=== PATIENT | female | born 1935 | race Caucasian/White ===

== ENCOUNTER 2021-03-05 10:39 | Emergency (ER) | payer MEDICARE | END 2021-03-05 11:46 | disposition home or self-care (01) | LOC: MADERS 10:39 | DX: N81.9 Female genital prolapse, unspecified (principal); I12.9 Hypertensive chronic kidney disease with stage 1 through stage 4 chronic kidney disease, or unspecified chronic kidney disease; N18.30 Chronic kidney disease, stage 3 unspecified; E78.00 Pure hypercholesterolemia, unspecified; I25.10 Atherosclerotic heart disease of native coronary artery without angina pectoris; Z79.899 Other long term (current) drug therapy | CPT/HCPCS: 99283 ==

== ENCOUNTER 2021-09-23 14:01 | Inpatient (IN) | payer MEDICARE ==
[2021-09-23] MEDS ORDERED: Ondansetron ODT 4 MG TAB PO PRN (19:16)
[2021-09-23] MEDS ORDERED: busPIRone HCl 5 MG TAB PO PRN (19:37)
[2021-09-23] MEDS: Cephalexin 250 MG CAP PO SCH (20:14)
[2021-09-23] MEDS: Acetaminophen/Codeine 30-300mg Tablet PO PRN (20:15)
[2021-09-23] MEDS: Gabapentin 100 MG CAP PO SCH (20:16)
[2021-09-23] MEDS: traZODone HCl 50 MG TAB PO PRN (20:22)
[2021-09-23] MEDS: Acetaminophen 325 MG TAB PO SCH (20:22)
[2021-09-24] MEDS: Acetaminophen 325 MG TAB PO SCH ×4 (05:24→21:56)
[2021-09-24] MEDS: Senokot S 8.6-50 MG TAB PO SCH ×3 (05:24→21:57)
[2021-09-24] MEDS: Levothyroxine Sodium 88 MCG TAB PO SCH (05:54)
[2021-09-24] MEDS: Acetaminophen/Codeine 30-300mg Tablet PO PRN ×3 (08:23→22:24)
[2021-09-24] MEDS: Cephalexin 250 MG CAP PO SCH ×3 (08:52→21:57)
[2021-09-24] MEDS: Rivaroxaban 15 MG TAB PO SCH (08:52)
[2021-09-24] MEDS: Loratadine 10 MG TAB PO SCH (08:52)
[2021-09-24] MEDS: Cholecalciferol (Vitamin D3) 5,000 UNITS CAPSULE PO SCH (08:52)
[2021-09-24] MEDS: Montelukast Sodium 10 mg Tablet PO SCH (08:52)
[2021-09-24] MEDS: Atorvastatin Calcium 10 MG TAB PO SCH (08:52)
[2021-09-24] MEDS: Gabapentin 100 MG CAP PO SCH ×3 (08:53→21:58)
[2021-09-24] MEDS ORDERED: Famotidine 20 MG TAB PO SCH (21:00)
[2021-09-24] MEDS: Famotidine 20 MG TAB PO SCH (21:58)
[2021-09-24] MEDS: Mometasone Furoate 60 PUFF 220MCG INH SCH (22:28)
[2021-09-25] MEDS: Acetaminophen 325 MG TAB PO SCH ×4 (03:33→19:58)
[2021-09-25] MEDS: Levothyroxine Sodium 88 MCG TAB PO SCH (06:14)
[2021-09-25] MEDS: Acetaminophen/Codeine 30-300mg Tablet PO PRN ×3 (08:32→22:58)
[2021-09-25] MEDS: Gabapentin 100 MG CAP PO SCH ×3 (08:33→20:00)
[2021-09-25] MEDS: Senokot S 8.6-50 MG TAB PO SCH ×2 (08:34→20:01)
[2021-09-25] MEDS: Cephalexin 250 MG CAP PO SCH ×3 (08:35→20:00)
[2021-09-25] MEDS: Rivaroxaban 15 MG TAB PO SCH (08:36)
[2021-09-25] MEDS: Loratadine 10 MG TAB PO SCH (08:36)
[2021-09-25] MEDS: Atorvastatin Calcium 10 MG TAB PO SCH (08:36)
[2021-09-25] MEDS: Cholecalciferol (Vitamin D3) 5,000 UNITS CAPSULE PO SCH (08:36)
[2021-09-25] MEDS: Montelukast Sodium 10 mg Tablet PO SCH (08:36)
[2021-09-25] MEDS: Famotidine 20 MG TAB PO SCH (20:01)
[2021-09-25] MEDS: Mometasone Furoate 60 PUFF 220MCG INH SCH (21:14)
[2021-09-26] MEDS: Acetaminophen 325 MG TAB PO SCH ×4 (02:17→17:38)
[2021-09-26 05:07] LABS: Hemoglobin 11.4 g/dL (12.0-16.0); Platelet Count 250 thou/uL (130-400)
[2021-09-26] MEDS: Levothyroxine Sodium 88 MCG TAB PO SCH (05:15)
[2021-09-26] MEDS: Cholecalciferol (Vitamin D3) 5,000 UNITS CAPSULE PO SCH (09:01)
[2021-09-26] MEDS: Gabapentin 100 MG CAP PO SCH ×3 (09:01→20:53)
[2021-09-26] MEDS: Loratadine 10 MG TAB PO SCH (09:02)
[2021-09-26] MEDS: Atorvastatin Calcium 10 MG TAB PO SCH (09:02)
[2021-09-26] MEDS: Montelukast Sodium 10 mg Tablet PO SCH (09:02)
[2021-09-26] MEDS: Rivaroxaban 15 MG TAB PO SCH (09:02)
[2021-09-26] MEDS: Senokot S 8.6-50 MG TAB PO SCH ×2 (09:02→20:53)
[2021-09-26] MEDS: Cyclobenzaprine 10 MG TAB PO PRN (17:46)
[2021-09-26] MEDS: Famotidine 20 MG TAB PO SCH (20:52)
[2021-09-26] MEDS: traZODone HCl 50 MG TAB PO PRN (20:52)
[2021-09-26] MEDS: Mometasone Furoate 60 PUFF 220MCG INH SCH (20:54)
[2021-09-27] MEDS: Acetaminophen 325 MG TAB PO SCH ×4 (00:10→17:06)
[2021-09-27] MEDS: Levothyroxine Sodium 88 MCG TAB PO SCH (05:43)
[2021-09-27] MEDS: Acetaminophen/Codeine 30-300mg Tablet PO PRN (05:43)
[2021-09-27] MEDS: Cholecalciferol (Vitamin D3) 5,000 UNITS CAPSULE PO SCH (08:54)
[2021-09-27] MEDS: Gabapentin 100 MG CAP PO SCH ×4 (08:54→21:04)
[2021-09-27] MEDS: Montelukast Sodium 10 mg Tablet PO SCH (08:55)
[2021-09-27] MEDS: Senokot S 8.6-50 MG TAB PO SCH ×2 (08:55→21:05)
[2021-09-27] MEDS: Rivaroxaban 15 MG TAB PO SCH (08:55)
[2021-09-27] MEDS: Loratadine 10 MG TAB PO SCH (08:55)
[2021-09-27] MEDS: Atorvastatin Calcium 10 MG TAB PO SCH (08:55)
[2021-09-27] MEDS: Cyclobenzaprine 10 MG TAB PO PRN (09:03)
[2021-09-27] MEDS: Famotidine 20 MG TAB PO SCH (21:04)
[2021-09-27] MEDS: traZODone HCl 50 MG TAB PO PRN (21:05)
[2021-09-27] MEDS: Mometasone Furoate 60 PUFF 220MCG INH SCH (21:47)
[2021-09-28] MEDS: Acetaminophen 325 MG TAB PO SCH ×4 (00:25→17:06)
[2021-09-28] MEDS: Acetaminophen/Codeine 30-300mg Tablet PO PRN (01:01)
[2021-09-28] MEDS: Levothyroxine Sodium 88 MCG TAB PO SCH (05:40)
[2021-09-28] MEDS: Loratadine 10 MG TAB PO SCH (08:37)
[2021-09-28] MEDS: Montelukast Sodium 10 mg Tablet PO SCH (08:37)
[2021-09-28] MEDS: Senokot S 8.6-50 MG TAB PO SCH ×2 (08:37→22:06)
[2021-09-28] MEDS: Cholecalciferol (Vitamin D3) 5,000 UNITS CAPSULE PO SCH (08:37)
[2021-09-28] MEDS: Rivaroxaban 15 MG TAB PO SCH (08:37)
[2021-09-28] MEDS: Gabapentin 100 MG CAP PO SCH ×4 (08:37→22:36)
[2021-09-28] MEDS: Atorvastatin Calcium 10 MG TAB PO SCH (08:37)
[2021-09-28 12:21] LABS: Bilirubin Negative (Negative); Blood, Urine Negative (Negative); Glucose, Urine (Dipstick) Negative (Negative); Ketone, Urine Negative (Negative); Leukocyte Negative (Negative); Nitrite Negative (Negative); Protein, Urine (Dipstick) Trace mg/dL (Neg-Trace); Specific Gravity, Urine 1.025 (1.005-1.030); pH, Urine 5.5 (5.0-9.0)
[2021-09-28 12:22] LABS: Clarity Hazy (Clear)
[2021-09-28 12:32] LABS: #Basophils 0.1 thou/uL (0.0-0.2); #Eosinphils 0.1 thou/uL (0.0-0.7); #Monocytes 0.5 thou/uL (0.11-0.59); #Neutrophils 14.6 thou/uL (1.40-6.50); %Basophils 0.5 % (0.0-1.0); %Eosinophils 0.8 % (0.0-10.0); %Monocytes 3.1 % (0.0-10.0); %Neutrophils 89.6 % (42.0-75.0); Hemoglobin 11.3 g/dL (12.0-16.0); Mean Corpuscular HGB CONC 32.2 g/dL (32.0-36.0); Mean Corpuscular Hemoglobin 29.2 pg (27.0-31.0); Mean Corpuscular Volume 90.9 fL (78.0-98.0); Mean Platelet Volume 7.7 fL (7.4-10.4); Platelet Count 301 thou/uL (130-400); RBC Distribution Width 12.5 % (11.5-14.5); Red Blood Cell (RBC) Count 3.86 mill/uL (4.20-5.40); White Blood Cell (WBC) Count 16.3 thou/uL (4.8-10.8)
[2021-09-28 13:20] LABS: SARS-CoV-2 NAA Rapid Test Not Detected (NotDetected)
[2021-09-28] MEDS: Famotidine 20 MG TAB PO SCH ×2 (22:04→22:45)
[2021-09-28] MEDS: Mometasone Furoate 60 PUFF 220MCG INH SCH ×2 (22:08→22:45)
[2021-09-29] MEDS: Acetaminophen 325 MG TAB PO SCH ×4 (02:27→17:17)
[2021-09-29] MEDS: Levothyroxine Sodium 88 MCG TAB PO SCH (06:18)
[2021-09-29] MEDS: Loratadine 10 MG TAB PO SCH (08:52)
[2021-09-29] MEDS: Cholecalciferol (Vitamin D3) 5,000 UNITS CAPSULE PO SCH (08:52)
[2021-09-29] MEDS: Senokot S 8.6-50 MG TAB PO SCH ×2 (08:52→20:54)
[2021-09-29] MEDS: Gabapentin 100 MG CAP PO SCH ×3 (08:53→20:54)
[2021-09-29] MEDS: Atorvastatin Calcium 10 MG TAB PO SCH (08:53)
[2021-09-29] MEDS: Rivaroxaban 15 MG TAB PO SCH (08:54)
[2021-09-29] MEDS: Montelukast Sodium 10 mg Tablet PO SCH (08:54)
[2021-09-29] MEDS: Acetaminophen/Codeine 30-300mg Tablet PO PRN ×2 (11:31→17:18)
[2021-09-29 13:01] LABS: Chlamydia by PCR Not Detected (NotDetected); GC by PCR Not Detected (NotDetected)
[2021-09-29] MEDS: Preparation H Ointment 57 gram tube TOP SCH (20:52)
[2021-09-29] MEDS: Famotidine 20 MG TAB PO SCH (20:53)
[2021-09-29] MEDS: traZODone HCl 50 MG TAB PO PRN (20:54)
[2021-09-29] MEDS: Mometasone Furoate 60 PUFF 220MCG INH SCH (20:55)
[2021-09-29] MEDS ORDERED: Docusate 100 MG CAP PO SCH (21:00)
[2021-09-30] MEDS: Acetaminophen 325 MG TAB PO SCH ×4 (00:14→17:07)
[2021-09-30] MEDS: Levothyroxine Sodium 88 MCG TAB PO SCH (05:28)
[2021-09-30] MEDS: Montelukast Sodium 10 mg Tablet PO SCH (08:00)
[2021-09-30] MEDS: Cholecalciferol (Vitamin D3) 5,000 UNITS CAPSULE PO SCH (08:00)
[2021-09-30] MEDS: Rivaroxaban 15 MG TAB PO SCH (08:00)
[2021-09-30] MEDS: Polyethylene Glycol 3350 17 GM Packet PO SCH (08:00)
[2021-09-30] MEDS: Atorvastatin Calcium 10 MG TAB PO SCH (08:00)
[2021-09-30] MEDS: Loratadine 10 MG TAB PO SCH (08:00)
[2021-09-30] MEDS: Gabapentin 100 MG CAP PO SCH ×3 (08:00→20:50)
[2021-09-30] MEDS: Senokot S 8.6-50 MG TAB PO SCH ×2 (08:00→20:50)
[2021-09-30] MEDS: Preparation H Ointment 57 gram tube TOP SCH ×2 (08:08→20:53)
[2021-09-30] MEDS: Famotidine 20 MG TAB PO SCH (20:49)
[2021-09-30] MEDS: Cyclobenzaprine 10 MG TAB PO PRN (20:50)
[2021-09-30] MEDS: Mometasone Furoate 60 PUFF 220MCG INH SCH (20:53)
[2021-10-01] MEDS: Acetaminophen 325 MG TAB PO SCH ×4 (00:45→17:13)
[2021-10-01] MEDS: Levothyroxine Sodium 88 MCG TAB PO SCH (06:07)
[2021-10-01] MEDS: Loratadine 10 MG TAB PO SCH (09:15)
[2021-10-01] MEDS: Gabapentin 100 MG CAP PO SCH ×3 (09:15→21:09)
[2021-10-01] MEDS: Senokot S 8.6-50 MG TAB PO SCH ×2 (09:15→21:09)
[2021-10-01] MEDS: Polyethylene Glycol 3350 17 GM Packet PO SCH (09:15)
[2021-10-01] MEDS: Rivaroxaban 15 MG TAB PO SCH (09:16)
[2021-10-01] MEDS: Cholecalciferol (Vitamin D3) 5,000 UNITS CAPSULE PO SCH (09:16)
[2021-10-01] MEDS: Preparation H Ointment 57 gram tube TOP SCH ×2 (09:16→21:11)
[2021-10-01] MEDS: Atorvastatin Calcium 10 MG TAB PO SCH (09:16)
[2021-10-01] MEDS: Montelukast Sodium 10 mg Tablet PO SCH (09:16)
[2021-10-01] MEDS: Acetaminophen/Codeine 30-300mg Tablet PO PRN (10:20)
[2021-10-01] MEDS: Famotidine 20 MG TAB PO SCH (21:08)
[2021-10-01] MEDS: traZODone HCl 50 MG TAB PO PRN (21:10)
[2021-10-01] MEDS: Mometasone Furoate 60 PUFF 220MCG INH SCH (21:14)
[2021-10-02] MEDS: Acetaminophen 325 MG TAB PO SCH ×4 (00:23→17:20)
[2021-10-02] MEDS: Levothyroxine Sodium 88 MCG TAB PO SCH (05:59)
[2021-10-02] MEDS: Senokot S 8.6-50 MG TAB PO SCH ×2 (09:48→20:14)
[2021-10-02] MEDS: Loratadine 10 MG TAB PO SCH (09:49)
[2021-10-02] MEDS: Gabapentin 100 MG CAP PO SCH ×3 (09:49→20:14)
[2021-10-02] MEDS: Rivaroxaban 15 MG TAB PO SCH (09:49)
[2021-10-02] MEDS: Polyethylene Glycol 3350 17 GM Packet PO SCH (09:49)
[2021-10-02] MEDS: Montelukast Sodium 10 mg Tablet PO SCH (09:49)
[2021-10-02] MEDS: Cholecalciferol (Vitamin D3) 5,000 UNITS CAPSULE PO SCH (09:49)
[2021-10-02] MEDS: Preparation H Ointment 57 gram tube TOP SCH ×2 (09:50→20:16)
[2021-10-02] MEDS: Atorvastatin Calcium 10 MG TAB PO SCH (09:50)
[2021-10-02] MEDS ORDERED: Acetaminophen/Codeine 30-300mg Tablet PO PRN (12:57)
[2021-10-02] MEDS: Famotidine 20 MG TAB PO SCH (20:14)
[2021-10-02] MEDS: Mometasone Furoate 60 PUFF 220MCG INH SCH (20:28)
[2021-10-03] MEDS: Acetaminophen 325 MG TAB PO SCH ×4 (02:14→18:33)
[2021-10-03] MEDS: Acetaminophen/Codeine 30-300mg Tablet PO PRN (03:34)
[2021-10-03] MEDS: Levothyroxine Sodium 88 MCG TAB PO SCH (06:24)
[2021-10-03] MEDS: Rivaroxaban 15 MG TAB PO SCH (08:20)
[2021-10-03] MEDS: Loratadine 10 MG TAB PO SCH (08:20)
[2021-10-03] MEDS: Gabapentin 100 MG CAP PO SCH ×3 (08:20→21:07)
[2021-10-03] MEDS: Senokot S 8.6-50 MG TAB PO SCH ×2 (08:21→21:08)
[2021-10-03] MEDS: Montelukast Sodium 10 mg Tablet PO SCH (08:21)
[2021-10-03] MEDS: Polyethylene Glycol 3350 17 GM Packet PO SCH (08:21)
[2021-10-03] MEDS: Cholecalciferol (Vitamin D3) 5,000 UNITS CAPSULE PO SCH (08:21)
[2021-10-03] MEDS: Atorvastatin Calcium 10 MG TAB PO SCH (08:21)
[2021-10-03] MEDS: Preparation H Ointment 57 gram tube TOP SCH ×2 (08:22→21:06)
[2021-10-03] MEDS: Famotidine 20 MG TAB PO SCH (21:06)
[2021-10-03] MEDS: traZODone HCl 50 MG TAB PO PRN (21:08)
[2021-10-03] MEDS: Mometasone Furoate 60 PUFF 220MCG INH SCH (21:18)
[2021-10-04] MEDS: Acetaminophen 325 MG TAB PO SCH ×5 (00:56→23:59)
[2021-10-04] MEDS: Levothyroxine Sodium 88 MCG TAB PO SCH (06:14)
[2021-10-04] MEDS: Acetaminophen/Codeine 30-300mg Tablet PO PRN (08:19)
[2021-10-04] MEDS: Rivaroxaban 15 MG TAB PO SCH (08:21)
[2021-10-04] MEDS: Loratadine 10 MG TAB PO SCH (08:21)
[2021-10-04] MEDS: Atorvastatin Calcium 10 MG TAB PO SCH (08:21)
[2021-10-04] MEDS: Cholecalciferol (Vitamin D3) 5,000 UNITS CAPSULE PO SCH (08:21)
[2021-10-04] MEDS: Montelukast Sodium 10 mg Tablet PO SCH (08:21)
[2021-10-04] MEDS: Gabapentin 100 MG CAP PO SCH ×3 (08:21→20:13)
[2021-10-04] MEDS: Preparation H Ointment 57 gram tube TOP SCH ×2 (08:22→20:15)
[2021-10-04] MEDS: Polyethylene Glycol 3350 17 GM Packet PO SCH (08:23)
[2021-10-04] MEDS: Senokot S 8.6-50 MG TAB PO SCH ×2 (08:23→20:13)
[2021-10-04] MEDS: Mometasone Furoate 60 PUFF 220MCG INH SCH (20:14)
[2021-10-04] MEDS: Famotidine 20 MG TAB PO SCH (20:14)
[2021-10-04] MEDS: traZODone HCl 50 MG TAB PO PRN (20:14)
[2021-10-05] MEDS: Acetaminophen 325 MG TAB PO SCH ×3 (05:26→17:22)
[2021-10-05] MEDS: Levothyroxine Sodium 88 MCG TAB PO SCH (05:28)
[2021-10-05] MEDS: Cholecalciferol (Vitamin D3) 5,000 UNITS CAPSULE PO SCH (08:39)
[2021-10-05] MEDS: Rivaroxaban 15 MG TAB PO SCH (08:39)
[2021-10-05] MEDS: Montelukast Sodium 10 mg Tablet PO SCH (08:39)
[2021-10-05] MEDS: Senokot S 8.6-50 MG TAB PO SCH ×2 (08:39→20:45)
[2021-10-05] MEDS: Gabapentin 100 MG CAP PO SCH ×3 (08:39→20:49)
[2021-10-05] MEDS: Atorvastatin Calcium 10 MG TAB PO SCH (08:40)
[2021-10-05] MEDS: Loratadine 10 MG TAB PO SCH (08:40)
[2021-10-05] MEDS: Polyethylene Glycol 3350 17 GM Packet PO SCH (08:40)
[2021-10-05] MEDS: Preparation H Ointment 57 gram tube TOP SCH ×2 (08:40→20:49)
[2021-10-05 11:33] LABS: #Basophils 0.1 thou/uL (0.0-0.2); #Eosinphils 0.3 thou/uL (0.0-0.7); #Lymphocytes 2.9 thou/uL (1.20-3.40); #Monocytes 0.6 thou/uL (0.11-0.59); #Neutrophils 9.8 thou/uL (1.40-6.50); %Basophils 0.7 % (0.0-1.0); %Eosinophils 2.5 % (0.0-10.0); %Lymphocytes 20.8 % (21.0-51.0); %Monocytes 4.3 % (0.0-10.0); %Neutrophils 71.8 % (42.0-75.0); Mean Corpuscular HGB CONC 33.1 g/dL (32.0-36.0); Mean Corpuscular Hemoglobin 29.9 pg (27.0-31.0); Mean Corpuscular Volume 90.3 fL (78.0-98.0); Mean Platelet Volume 7.2 fL (7.4-10.4); Platelet Count 400 thou/uL (130-400); RBC Distribution Width 12.6 % (11.5-14.5); Red Blood Cell (RBC) Count 3.68 mill/uL (4.20-5.40); White Blood Cell (WBC) Count 13.7 thou/uL (4.8-10.8)
[2021-10-05] MEDS: Famotidine 20 MG TAB PO SCH (20:46)
[2021-10-05] MEDS: Mometasone Furoate 60 PUFF 220MCG INH SCH (20:47)
[2021-10-05] MEDS: traZODone HCl 50 MG TAB PO PRN (20:47)
[2021-10-06] MEDS: Acetaminophen 325 MG TAB PO SCH ×5 (01:50→23:57)
[2021-10-06] MEDS: Levothyroxine Sodium 88 MCG TAB PO SCH (05:26)
[2021-10-06] MEDS: Atorvastatin Calcium 10 MG TAB PO SCH (08:48)
[2021-10-06] MEDS: Montelukast Sodium 10 mg Tablet PO SCH (08:48)
[2021-10-06] MEDS: Gabapentin 100 MG CAP PO SCH ×3 (08:48→21:13)
[2021-10-06] MEDS: Rivaroxaban 15 MG TAB PO SCH (08:49)
[2021-10-06] MEDS: Loratadine 10 MG TAB PO SCH (08:49)
[2021-10-06] MEDS: Polyethylene Glycol 3350 17 GM Packet PO SCH (08:49)
[2021-10-06] MEDS: Preparation H Ointment 57 gram tube TOP SCH ×2 (08:49→21:14)
[2021-10-06] MEDS: Cholecalciferol (Vitamin D3) 5,000 UNITS CAPSULE PO SCH (08:49)
[2021-10-06] MEDS: Senokot S 8.6-50 MG TAB PO SCH ×2 (08:49→21:18)
[2021-10-06] MEDS: Mometasone Furoate 60 PUFF 220MCG INH SCH (21:12)
[2021-10-06] MEDS: Famotidine 20 MG TAB PO SCH (21:13)
[2021-10-07] MEDS: Acetaminophen 325 MG TAB PO SCH ×3 (05:54→17:06)
[2021-10-07] MEDS: Levothyroxine Sodium 88 MCG TAB PO SCH (05:54)
[2021-10-07] MEDS: Cholecalciferol (Vitamin D3) 5,000 UNITS CAPSULE PO SCH (08:29)
[2021-10-07] MEDS: Loratadine 10 MG TAB PO SCH (08:30)
[2021-10-07] MEDS: Montelukast Sodium 10 mg Tablet PO SCH (08:30)
[2021-10-07] MEDS: Atorvastatin Calcium 10 MG TAB PO SCH (08:30)
[2021-10-07] MEDS: Senokot S 8.6-50 MG TAB PO SCH ×2 (08:30→22:07)
[2021-10-07] MEDS: Preparation H Ointment 57 gram tube TOP SCH ×2 (08:30→22:07)
[2021-10-07] MEDS: Polyethylene Glycol 3350 17 GM Packet PO SCH (08:30)
[2021-10-07] MEDS: Rivaroxaban 15 MG TAB PO SCH (08:30)
[2021-10-07] MEDS: Gabapentin 100 MG CAP PO SCH ×3 (08:30→22:06)
[2021-10-07] MEDS: Mometasone Furoate 60 PUFF 220MCG INH SCH (22:05)
[2021-10-07] MEDS: Famotidine 20 MG TAB PO SCH (22:06)
[2021-10-08] MEDS: Acetaminophen 325 MG TAB PO SCH ×4 (00:14→17:28)
[2021-10-08] MEDS: Levothyroxine Sodium 88 MCG TAB PO SCH (06:00)
[2021-10-08] MEDS: Senokot S 8.6-50 MG TAB PO SCH ×2 (08:35→19:57)
[2021-10-08] MEDS: Polyethylene Glycol 3350 17 GM Packet PO SCH (08:35)
[2021-10-08] MEDS: Gabapentin 100 MG CAP PO SCH ×3 (08:36→20:56)
[2021-10-08] MEDS: Cholecalciferol (Vitamin D3) 5,000 UNITS CAPSULE PO SCH (08:36)
[2021-10-08] MEDS: Atorvastatin Calcium 10 MG TAB PO SCH (08:36)
[2021-10-08] MEDS: Montelukast Sodium 10 mg Tablet PO SCH (08:36)
[2021-10-08] MEDS: Rivaroxaban 15 MG TAB PO SCH (08:36)
[2021-10-08] MEDS: Loratadine 10 MG TAB PO SCH (08:36)
[2021-10-08] MEDS: Preparation H Ointment 57 gram tube TOP SCH ×2 (08:37→19:57)
[2021-10-08] MEDS: Famotidine 20 MG TAB PO SCH (20:56)
[2021-10-08] MEDS: Mometasone Furoate 60 PUFF 220MCG INH SCH (20:57)
[2021-10-09] MEDS: Acetaminophen 325 MG TAB PO SCH ×5 (06:29→23:13)
[2021-10-09] MEDS: Levothyroxine Sodium 88 MCG TAB PO SCH (06:59)
[2021-10-09] MEDS: Senokot S 8.6-50 MG TAB PO SCH ×2 (08:24→20:24)
[2021-10-09] MEDS: Gabapentin 100 MG CAP PO SCH ×3 (08:24→20:24)
[2021-10-09] MEDS: Cholecalciferol (Vitamin D3) 5,000 UNITS CAPSULE PO SCH (08:24)
[2021-10-09] MEDS: Rivaroxaban 15 MG TAB PO SCH (08:24)
[2021-10-09] MEDS: Loratadine 10 MG TAB PO SCH (08:25)
[2021-10-09] MEDS: Montelukast Sodium 10 mg Tablet PO SCH (08:25)
[2021-10-09] MEDS: Atorvastatin Calcium 10 MG TAB PO SCH (08:25)
[2021-10-09] MEDS: Polyethylene Glycol 3350 17 GM Packet PO SCH (08:26)
[2021-10-09] MEDS: Preparation H Ointment 57 gram tube TOP SCH ×2 (08:29→20:26)
[2021-10-09] MEDS: Acetaminophen/Codeine 30-300mg Tablet PO PRN (17:39)
[2021-10-09] MEDS: Mometasone Furoate 60 PUFF 220MCG INH SCH (20:25)
[2021-10-09] MEDS: Famotidine 20 MG TAB PO SCH (20:25)
[2021-10-09] MEDS: Cyclobenzaprine 10 MG TAB PO PRN (21:10)
[2021-10-10] MEDS: Acetaminophen 325 MG TAB PO SCH ×4 (07:05→23:37)
[2021-10-10] MEDS: Levothyroxine Sodium 88 MCG TAB PO SCH (07:05)
[2021-10-10] MEDS: Polyethylene Glycol 3350 17 GM Packet PO SCH (09:12)
[2021-10-10] MEDS: Cholecalciferol (Vitamin D3) 5,000 UNITS CAPSULE PO SCH (09:12)
[2021-10-10] MEDS: Rivaroxaban 15 MG TAB PO SCH (09:12)
[2021-10-10] MEDS: Montelukast Sodium 10 mg Tablet PO SCH (09:12)
[2021-10-10] MEDS: Gabapentin 100 MG CAP PO SCH ×3 (09:12→20:19)
[2021-10-10] MEDS: Atorvastatin Calcium 10 MG TAB PO SCH (09:12)
[2021-10-10] MEDS: Loratadine 10 MG TAB PO SCH (09:12)
[2021-10-10] MEDS: Senokot S 8.6-50 MG TAB PO SCH ×2 (09:13→20:19)
[2021-10-10] MEDS: Preparation H Ointment 57 gram tube TOP SCH ×2 (09:13→20:20)
[2021-10-10 10:21] VITALS: BMI 22.5
[2021-10-10] MEDS: Acetaminophen/Codeine 30-300mg Tablet PO PRN (14:47)
[2021-10-10] MEDS: Famotidine 20 MG TAB PO SCH (20:19)
[2021-10-10] MEDS: Mometasone Furoate 60 PUFF 220MCG INH SCH (20:20)
[2021-10-11] MEDS: Acetaminophen 325 MG TAB PO SCH ×4 (05:24→23:19)
[2021-10-11] MEDS: Levothyroxine Sodium 88 MCG TAB PO SCH (05:24)
[2021-10-11] MEDS: Senokot S 8.6-50 MG TAB PO SCH ×2 (08:23→20:08)
[2021-10-11] MEDS: Montelukast Sodium 10 mg Tablet PO SCH (08:23)
[2021-10-11] MEDS: Polyethylene Glycol 3350 17 GM Packet PO SCH (08:23)
[2021-10-11] MEDS: Atorvastatin Calcium 10 MG TAB PO SCH (08:24)
[2021-10-11] MEDS: Gabapentin 100 MG CAP PO SCH ×3 (08:24→20:09)
[2021-10-11] MEDS: Cholecalciferol (Vitamin D3) 5,000 UNITS CAPSULE PO SCH (08:24)
[2021-10-11] MEDS: Rivaroxaban 15 MG TAB PO SCH (08:24)
[2021-10-11] MEDS: Loratadine 10 MG TAB PO SCH (08:24)
[2021-10-11] MEDS: Preparation H Ointment 57 gram tube TOP SCH ×2 (08:25→20:11)
[2021-10-11] MEDS: Cyclobenzaprine 10 MG TAB PO PRN (11:59)
[2021-10-11] MEDS: Acetaminophen/Codeine 30-300mg Tablet PO PRN (15:15)
[2021-10-11] MEDS: Mometasone Furoate 60 PUFF 220MCG INH SCH (20:08)
[2021-10-11] MEDS: traZODone HCl 50 MG TAB PO PRN (20:09)
[2021-10-11] MEDS: Famotidine 20 MG TAB PO SCH (20:09)
[2021-10-12] MEDS: Acetaminophen 325 MG TAB PO SCH ×3 (05:26→17:23)
[2021-10-12] MEDS: Levothyroxine Sodium 88 MCG TAB PO SCH (05:26)
[2021-10-12] MEDS: Atorvastatin Calcium 10 MG TAB PO SCH (08:12)
[2021-10-12] MEDS: Rivaroxaban 15 MG TAB PO SCH (08:12)
[2021-10-12] MEDS: Loratadine 10 MG TAB PO SCH (08:13)
[2021-10-12] MEDS: Montelukast Sodium 10 mg Tablet PO SCH (08:13)
[2021-10-12] MEDS: Senokot S 8.6-50 MG TAB PO SCH ×2 (08:13→20:54)
[2021-10-12] MEDS: Gabapentin 100 MG CAP PO SCH ×3 (08:13→20:53)
[2021-10-12] MEDS: Polyethylene Glycol 3350 17 GM Packet PO SCH (08:13)
[2021-10-12] MEDS: Cholecalciferol (Vitamin D3) 5,000 UNITS CAPSULE PO SCH (08:13)
[2021-10-12] MEDS: Preparation H Ointment 57 gram tube TOP SCH ×2 (08:21→20:54)
[2021-10-12] MEDS ORDERED: Acetaminophen/Codeine 30-300mg Tablet PO PRN (14:34)
[2021-10-12] MEDS: Famotidine 20 MG TAB PO SCH (20:53)
[2021-10-12] MEDS: Mometasone Furoate 60 PUFF 220MCG INH SCH (20:54)
[2021-10-12] MEDS: traZODone HCl 50 MG TAB PO PRN (20:56)
[2021-10-13] MEDS: Acetaminophen 325 MG TAB PO SCH ×3 (00:50→11:54)
[2021-10-13] MEDS: Levothyroxine Sodium 88 MCG TAB PO SCH (05:37)
[2021-10-13] MEDS: Atorvastatin Calcium 10 MG TAB PO SCH (08:13)
[2021-10-13] MEDS: Loratadine 10 MG TAB PO SCH (08:13)
[2021-10-13] MEDS: Montelukast Sodium 10 mg Tablet PO SCH (08:13)
[2021-10-13] MEDS: Rivaroxaban 15 MG TAB PO SCH (08:13)
[2021-10-13] MEDS: Cholecalciferol (Vitamin D3) 5,000 UNITS CAPSULE PO SCH (08:13)
[2021-10-13] MEDS: Gabapentin 100 MG CAP PO SCH (08:13)
[2021-10-13] MEDS: Polyethylene Glycol 3350 17 GM Packet PO SCH (08:14)
[2021-10-13] MEDS: Preparation H Ointment 57 gram tube TOP SCH (08:14)
[2021-10-13] MEDS: Senokot S 8.6-50 MG TAB PO SCH (08:15)
[2021-10-13 08:30] VITALS: BP 130/66; TEMP 97.6
== END 2021-10-13 12:45 | DRG 561 ==
LOC: MADMS 14:01
PROVIDERS: ADMIT Family Medicine; ATTEND Family Medicine
DX: Z47.1 Aftercare following joint replacement surgery (principal); Z20.822 Contact with and (suspected) exposure to COVID-19; F03.90 Unspecified dementia, unspecified severity, without behavioral disturbance, psychotic disturbance, mood disturbance, and anxiety; Z66 Do not resuscitate; I12.9 Hypertensive chronic kidney disease with stage 1 through stage 4 chronic kidney disease, or unspecified chronic kidney disease; F51.01 Primary insomnia; J30.9 Allergic rhinitis, unspecified; F41.9 Anxiety disorder, unspecified; N18.30 Chronic kidney disease, stage 3 unspecified; R50.9 Fever, unspecified; K59.00 Constipation, unspecified; K64.4 Residual hemorrhoidal skin tags; N89.8 Other specified noninflammatory disorders of vagina; E03.9 Hypothyroidism, unspecified; I48.91 Unspecified atrial fibrillation; Z79.01 Long term (current) use of anticoagulants; Z88.0 Allergy status to penicillin; Z79.899 Other long term (current) drug therapy; Z79.890 Hormone replacement therapy; Z95.0 Presence of cardiac pacemaker; Z83.3 Family history of diabetes mellitus
CPT/HCPCS: 36415; 71045; 81003; 82565; 85014; 85018; 85025; 85049; 87040; 87081; 87086; 87430; 87491; 87591; 87661; 87804; J3535; U0002; U0003; U0005